=== PATIENT | female | born 1980 | race Caucasian/White ===

== ENCOUNTER → 2017-10-17 | Outpatient (CLI) | payer BC, OTHER ==
[2017-10-17 10:08] LABS: Specimen Source ENDOCERVICAL
[2017-10-18 05:09] LABS: Source ENDOCERVICAL
[2017-10-18 05:11] LABS: Source ENDOCERVICAL
== END ==
LOC: LAB 10:05 → LAB SHORT 10:05
PROVIDERS: Nurse Practitioner
DX: Z01.419 Encounter for gynecological examination (general) (routine) without abnormal findings (principal)
CPT/HCPCS: 87491; 87591